=== PATIENT | female | born 1990 | race Caucasian/White ===

== ENCOUNTER 2018-09-26 22:04 | Emergency (ER) | payer OTHER ==
[~2018-09-26] VITALS: Ht 167.6 cm; Wt 73.9 kg
[2018-09-27] MEDS ORDERED: KETO10TA2 PO (01:46)
[2018-09-27] MEDS ORDERED: SKELAXIN800 MG PO (01:46)
[2018-09-27] MEDS ORDERED: ORPHENADRINE C100 MG (01:51)
== END 2018-09-27 02:01 | disposition home or self-care (01) ==
LOC: ER 22:04
DX: S30.0XXA Contusion of lower back and pelvis, initial encounter (principal); M62.838 Other muscle spasm; V49.9XXA Car occupant (driver) (passenger) injured in unspecified traffic accident, initial encounter; Y93.89 Activity, other specified; Y92.488 Other paved roadways as the place of occurrence of the external cause; Y99.8 Other external cause status

== ENCOUNTER 2021-09-10 19:25 | Emergency (ER) | payer OTHER ==
[~2021-09-10] VITALS: Ht 167.6 cm; Wt 89.4 kg
[~2021-09-10 19:25] MED LIST: KETO10TA2 PO; ORPHENADRINE C100 MG; SKELAXIN800 MG PO
== END 2021-09-11 00:27 | disposition home or self-care (01) ==
LOC: ER 19:25
DX: B34.9 Viral infection, unspecified (principal)

== ENCOUNTER 2022-01-16 09:50 | Outpatient (CLI) | payer OTHER | END 2022-01-16 10:02 | disposition home or self-care (01) | LOC: SONOGRAMA 09:50 | PROVIDERS: ATTEND Obstetrics & Gynecology Obstetrics | DX: R10.2 Pelvic and perineal pain (principal); N85.2 Hypertrophy of uterus; N60.11 Diffuse cystic mastopathy of right breast; N60.12 Diffuse cystic mastopathy of left breast; E04.9 Nontoxic goiter, unspecified ==

== ENCOUNTER 2025-02-01 08:11 | Outpatient (CLI) | payer OTHER | END 2025-02-01 08:22 | disposition home or self-care (01) | LOC: MAMO-SONO 08:11 | PROVIDERS: ATTEND Obstetrics & Gynecology Obstetrics | DX: N85.2 Hypertrophy of uterus (principal); E04.9 Nontoxic goiter, unspecified; N60.11 Diffuse cystic mastopathy of right breast; N60.12 Diffuse cystic mastopathy of left breast; Z12.31 Encounter for screening mammogram for malignant neoplasm of breast ==

== ENCOUNTER 2025-02-06 09:44 | Outpatient (CLI) | payer OTHER | END 2025-02-06 09:51 | disposition home or self-care (01) | LOC: SONOGRAMA 09:44 | PROVIDERS: ATTEND Obstetrics & Gynecology Obstetrics | DX: R10.13 Epigastric pain (principal) ==

== ENCOUNTER 2025-03-14 15:37 | Outpatient (CLI) | payer OTHER | END 2025-03-14 15:52 | disposition home or self-care (01) | LOC: RAD 15:37 | PROVIDERS: ATTEND Specialist | DX: M25.561 Pain in right knee (principal); M25.562 Pain in left knee; M54.9 Dorsalgia, unspecified ==

== ENCOUNTER 2025-03-14 16:26 | Outpatient (CLI) | payer OTHER | END 2025-03-14 17:22 | disposition home or self-care (01) | LOC: LAB 16:26 | PROVIDERS: ATTEND Specialist | DX: M25.561 Pain in right knee (principal); M25.562 Pain in left knee; M54.9 Dorsalgia, unspecified ==

== ENCOUNTER → 2025-03-20 | Outpatient (CLI) | payer OTHER | END | disposition home or self-care (01) | LOC: MRI 11:55 | PROVIDERS: ATTEND Specialist | DX: M25.50 Pain in unspecified joint (principal) | CPT/HCPCS: 73721 ==